=== PATIENT | female | born 1930 | race Caucasian/White ===

== ENCOUNTER 2016-03-11 06:20 | Day surgery (SDC) | payer OTHER, BC ==
[2016-02-29 12:24] VITALS: BMI 30.2
[2016-03-11] MEDS ORDERED: LIDOCAINE HCL 2% (20ML MULTI-DOSE VIAL) NR ONE (07:03)
[2016-03-11] MEDS ORDERED: BUPIVACAINE HCL/PF 0.5% (5MG/ML) 10 ML VIAL ONE (07:03)
[2016-03-11] MEDS ORDERED: MIDAZOLAM HCL 2 MG/2 ML SINGLE DOSE VIAL ONE (07:35)
[2016-03-11] MEDS ORDERED: PROPOFOL 20 ML ONE (07:44)
[2016-03-11] MEDS ORDERED: ceFAZolin SODIUM 1 GM VIAL ONE (07:50)
[2016-03-11] MEDS ORDERED: KETOROLAC TROMETHAMINE 30 MG/1 ML VIAL ONE (07:59)
[2016-03-11] MEDS ORDERED: LIDOCAINE HCL 2% 100 MG/5 ML DISP.SYRIN ONE (08:06)
[2016-03-11] MEDS ORDERED: ONDANSETRON 4 MG/2 ML VIAL IVPUSH PRN (08:39)
[2016-03-11] MEDS ORDERED: PROMETHAZINE HCL 25 MG/1 ML VIAL IVPUSH PRN (08:39)
[2016-03-11] MEDS ORDERED: LACTATED RINGERS SOLUTION 1,000 ML IV SCH (08:45)
[2016-03-11] MEDS ORDERED: ACETAMINOPHEN WITH CODEINE 300MG/30MG TABLET PO PRN (08:56)
[2016-03-11 09:31] VITALS: TEMP 98.2
[2016-03-11 09:57] VITALS: BP 134/64; PULSE 76
--- NOTE | 2016-03-11 20:33 | OP ---
DATE OF OPERATION: 03/11/2016 PREOPERATIVE DIAGNOSIS: Hammertoe, right 2nd toe, and hammertoe, right 3rd toe. SURGEON: Oj Zarate DPM ELECTRIC TRUCKER: Alexandra Singh POSTOPERATIVE DIAGNOSIS: Hammertoe, right 2nd toe, and hammertoe, right 3rd toe. OPERATIVE PROCEDURE: Arthroplasty, right 2nd and right 3rd toes. OPERATIVE PROCEDURE IN DETAIL: The patient was taken to the operating room, placed in the operating table in the supine position. Usual aseptic prepping and draping were performed. Local anesthesia was initiated using a total of 12 mL of a 50/50 mix of 0.5% Marcaine and 2% plain Xylocaine. Prepping and draping were then completed. Attention was 1st directed to the right 2nd toe, where a 2-cm elliptical longitudinal incisions were performed over the proximal interphalangeal joint. Incisions were total of 2 cm. The longitudinal wedge of skin was excised. At this point a transverse incision was effectively placed at the level of the proximal interphalangeal joint, incising the extensor tendon complex. The medial and lateral collateral ligaments at the head of the proximal phalanx were then incised, delivering the head into the interspace. At this point, at the level of the surgical neck, using a bone-cutting forceps, the head of the proximal phalanx was incised. The area was rasped with a rasp and flushed. The extensor tendon was then reapproximated with number 4-0 Vicryl. Skin was then reapproximated and closed in a simple manner with number 4-0 nylon. Attention was next directed to the 3rd toe of the right foot, where 2 semi-elliptical transverse incisions were effectively made over the proximal interphalangeal joint, excising a wedge of skin and tendon. The incision was then deepened through to the head of the proximal phalanx, where the medial and lateral collateral ligaments were incised, delivering the head dorsally into the interspace. At the level of the surgical neck, using bone-cutting forceps, the head was incised and excised. At this point, the extensor tendon complex, a small portion was excised and the tendon was reapproximated and closed with number 4-0 Vicryl. Skin was reapproximated and closed with number 5-0 nylon and a few Steri-Strips were utilized. Sterile dressing utilizing Betadine, Mckay, and Elastoplast were utilized on the patient. Capillary filling time and all vital signs were noted to be intact at bandaging. The patient was taken to the recovery room under the care of the anesthesiology department. LAURYN RIZVI/[id number]
--- NOTE | 2016-03-13 12:15 | PATH ---
Surgical Pathology Report Patient Name: YELENA CAVAZOS [facility]. Rec. #: [id number] /Age/Gender: 1930 (Age: 85) / F Account: [id number] Location: [facility] Taken: 03/11/2016 Received: 03/11/2016 Reported: 03/13/2016 Physicians: Jr Zarate Specimen(s) Received RIGHT FOOT BONE AND SKIN Clinical History Hammertoe right foot #2 and #3 toes Final Diagnosis SKIN AND BONE, RIGHT FOOT, EXCISION: BONE AND ATTACHED ARTICULAR CARTILAGE WITH REACTIVE CHANGES, AND SKIN WITH HYPERKERATOSIS. Electronically Signed Ko Moss M.D. Gross Description Received in formalin, labeled "right foot bone and skin," is a 2.2 x 2.1 x 0.3 cm aggregate of li-brown skin fragments. The largest portion of bone is bisected and the specimen is entirely submitted in one cassette, following decalcification. /03/12/201603/12/2016
== END 2016-03-11 10:02 | disposition home or self-care (01) ==
LOC: FASU 06:20
PROVIDERS: ATTEND Podiatrist
PROC: 0SGP0ZZ (ICD-10-PCS; principal; 2016-03-11 07:56)
DX: M20.41 Other hammer toe(s) (acquired), right foot (principal)
CPT/HCPCS: 73630-TC-RT; 88304-TC; 88311-TC; 94760

== ENCOUNTER 2016-07-08 06:26 | Day surgery (SDC) | payer OTHER, BC ==
[2016-07-01 16:00] VITALS: BMI 29.2
[2016-07-08] MEDS ORDERED: BUPIVACAINE HCL/PF 2.5 MG/ML - 30 ML VIAL IJ ONE (07:21)
[2016-07-08] MEDS ORDERED: LIDOCAINE HCL 1%, 10 MG/ML (20ML VIAL) ONE (07:22)
[2016-07-08] MEDS ORDERED: BUPIVACAINE HCL/PF 0.5% (5MG/ML) 10 ML VIAL ONE (07:22)
[2016-07-08] MEDS ORDERED: LIDOCAINE HCL 2% (20ML MULTI-DOSE VIAL) NR ONE (07:22)
[2016-07-08] MEDS ORDERED: PROPOFOL 20 ML ONE ×2 (07:26)
[2016-07-08] MEDS ORDERED: MIDAZOLAM HCL 2 MG/2 ML SINGLE DOSE VIAL ONE (07:26)
[2016-07-08] MEDS ORDERED: LIDOCAINE HCL/PF 2% SDV 5ML VIAL ONE (07:27)
[2016-07-08] MEDS ORDERED: SUCCINYLCHOLINE CHLORIDE 200 MG/10 ML VIAL ONE (07:31)
[2016-07-08] MEDS ORDERED: oxyCODONE HCL 5 MG TABLET PO PRN (08:42)
[2016-07-08] MEDS ORDERED: LACTATED RINGERS SOLUTION 1,000 ML IV SCH (08:45)
[2016-07-08] MEDS ORDERED: ONDANSETRON 4 MG/2 ML VIAL IVPUSH PRN (08:50)
[2016-07-08] MEDS ORDERED: ACETAMINOPHEN WITH CODEINE 300MG/30MG TABLET PO PRN (08:57)
[2016-07-08 09:34] VITALS: TEMP 98.2
[2016-07-08 10:00] VITALS: BP 136/72; PULSE 78
--- NOTE | 2016-07-08 20:57 | OP ---
DATE OF OPERATION: 07/08/2016 SURGEON: Oj Zarate DPM RF ENGINEER: Dr. Stein. PREOPERATIVE DIAGNOSIS: Hammertoe, right fourth with severe contraction. POSTOPERATIVE DIAGNOSIS: Hammertoe, right fourth with severe contraction. OPERATIVE PROCEDURE: Arthroplasty of the right fourth toe at the proximal interphalangeal joint. PROCEDURE IN DETAIL: The patient was taken to the operating room and placed in the supine position on the operating table. Local anesthesia was initiated with a total of 4 mL of 50/50 mix of 0.5 Marcaine and 2% plain lidocaine. After this was done, usual aseptic prepping and draping were performed. Attention was directed to the proximal interphalangeal joint of the right fourth toe where 2 semi-elliptical transverse incisions were effectively placed over the joint. They were deepened down to bone, removing a portion of skin and tendon. At this point, the medial and lateral collateral ligaments of the head of the proximal phalanx was incised and at the level of the surgical neck, an arthroplasty removing the head of the proximal phalanx was performed. The area was then rasped and flushed with copious amounts of sterile saline solution. The extensor tendon then was reapproximated and closed with 4-0 Vicryl. Skin was reapproximated and closed with 4-0 nylon. Dry sterile dressing was applied to the operative foot. Capillary refilling time was noted to be intact at bandaging. The patient tolerated the operative procedure and the anesthesia well. LAURYN RIZVI/[id number]
--- NOTE | 2016-07-15 16:10 | PATH ---
Surgical Pathology Report Patient Name: YELENA CAVAZOS [facility]. Rec. #: [id number] /Age/Gender: 1930 (Age: 86) / F Account: [id number] Location: [facility] Taken: 07/08/2016 Received: 07/09/2016 Reported: 07/15/2016 Physicians: Jr Zarate Specimen(s) Received SKIN, BONE AND TENDON RIGHT 4TH TOE Clinical History Hammer toe right fourth toe Final Diagnosis SKIN, BONE AND TENDON, RIGHT FOURTH TOE, EXCISION: CARTILAGE-CAPPED BONE AND FIBROCOLLAGENOUS TISSUE. Electronically Signed Laney Herndon M.D. Gross Description Received in formalin labeled "skin, bone and tendon right fourth toe," is a 1.0 x 0.5 x 0.4 cm li, irregular portion of bone. Also received within the same container are 2 li soft tissue fragments averaging 0.5 cm in greatest dimension. The bone is bisected and the specimen is entirely submitted in one cassette, following decalcification. 07/09/201607/09/2016
== END 2016-07-08 10:15 | disposition home or self-care (01) ==
LOC: FASU 06:26
PROVIDERS: ATTEND Podiatrist
PROC: 0SRP0JZ Replacement of Right Toe Phalangeal Joint with Synthetic Substitute, Open Approach (ICD-10-PCS; principal; 2016-07-08 08:10)
DX: M20.41 Other hammer toe(s) (acquired), right foot (principal)
CPT/HCPCS: 73630-TC-RT; 88304-TC; 88311-TC; 94760